=== PATIENT | male | born 1980 | race Caucasian/White ===

== ENCOUNTER 2022-09-19 13:46 | Outpatient (CLI) | payer BC, MEDICARE, SELFPAY ==
[2022-09-19 16:47] LABS: Chloride* 102 mmol/L (96-114); Sodium* 140 mmol/L (135-149)
[2022-09-19 16:48] LABS: Potassium* 4.4 mmol/L (3.6-5.1)
[2022-09-19 16:50] LABS: Estimated Glomerular Filt Rate 96 ml/min
[2022-09-19 16:51] LABS: Blood Urea Nitrogen* 18 mg/dL (5-24); Calcium* 9.8 mg/dL (8.4-10.6); Carbon Dioxide* 27 mmol/L (20-32); Glucose* 128 mg/dL (60-115)
== END 2022-09-19 13:47 | disposition home or self-care (01) ==
PROVIDERS: PCP Family Medicine; Visit Provider Family Medicine
DX: Z01.818 Encounter for other preprocedural examination (principal); N50.82 Scrotal pain
CPT/HCPCS: 80048

== ENCOUNTER 2022-10-26 12:11 | Outpatient (CLI) | payer BC, MEDICARE, SELFPAY ==
[2022-10-26 22:07] LABS: Chloride* 98 mmol/L (96-114); Potassium* 4.7 mmol/L (3.6-5.1); Sodium* 137 mmol/L (135-149)
[2022-10-26 22:10] LABS: Creatinine* 0.8 mg/dL (0.5-1.5); Estimated Glomerular Filt Rate 113 ml/min
[2022-10-26 22:11] LABS: Blood Urea Nitrogen* 18 mg/dL (5-24); Carbon Dioxide* 30 mmol/L (20-32); Glucose* 91 mg/dL (60-115)
[2022-10-26 22:21] LABS: INR 0.95 (0.91-1.10); Prothrombin Time 13.3 Seconds
== END 2022-10-26 12:12 | disposition home or self-care (01) ==
PROVIDERS: PCP Family Medicine; Visit Provider Family Medicine
DX: Z01.818 Encounter for other preprocedural examination (principal)
CPT/HCPCS: 80048; 85610

== ENCOUNTER 2023-10-03 16:42 | Outpatient (CLI) | payer BC, MEDICARE, SELFPAY ==
--- OUTSIDE RECORDS SUMMARY | 2023-10-03 11:17 | XMS_ITS | Continuity of Care Document ---
Author Name Unknown Organization [facility] Address [address] [place] [address] Phone Care Team Providers Care Telegraph Service Rater Name Role Phone Gary CRUM, PhD, Musa Unavailable Unavai lable Allergies, Adverse Reactions, Alerts Substance Reaction Status Criticality SCOPOLAMINE HYDROBROMIDE Skin rash Active No Information benzoin Skin rash Active No Information pseudoephedrine Active No Informati on loratadine Active No Information gabapentin Vomiting Active No Information latex Angioedema Active No Information HYDROCODONE BITARTRATE Nausea and vomiting Active No Information acetaminophen Active No Information Medications Medication Instructions Dosage Effective Dates (start - stop) Status Comments BUPRENORPHINE (unknown strength) Not Available - Active FLUTICASONE PROPIONATE (unknown strength) Not Available - Active IBUPROFEN (unknown strength) Not Available - Active PENTOXIFYLLINE (unknown strength) Not Available - Active NALOXONE HCL (unknown strength) Not Available - Active PROPRANOLOL HCL (unknown strength) Not Available - Active RIZATRIPTAN (unknown strength) Not Available - Active TIZANIDINE HCL (unknown strength) Not Available - Active NEXIUM (unknown strength) take 1 capsule by oral route every day at least 1 hour before a meal swallowing whole. Do not crush or chew granules. Not Available - Active ADELAIDA-D 12 HOUR (unknown strength) Not Available - Active SUMATRIPTAN (unknown strength) spray 1 spray by intranasal route once; if headache returns, dose may be repeated once after 2 hours, not to exceed 40 mg per day Not Available - Active NORTRIPTYLINE HCL (unknown strength) Not Available - Active ROXICET (unknown strength) Not Available - Active PROCHLORPERAZINE (unknown strength) Not Available - No Longer Active Procedures Procedure Date Office/Outpatient Visit,Coco Pinedo 2021 Office/Outpatient Visit,Coco Pinedo 2015 Advance Directives Directive Yes / No Effective Date File Name No Information Encounters Encounter Description Practice Location Reason(s) For Visit Diagnoses Date Provider Providers Copied on Encounter Office/Outpat ient Visit,Coco Pinedo [facility], [address], [facility] [place] [place], [id number], [place] tel:[phone] [facility] Cervicalgia 2 Gary Vigil. [facility], [address] [place] [address] [address], [place], [address], [place]. [phone] Referring Provider: Musa Vega, [facility] [address], [place], [address]. tel:[phone] Office/Outpat ient Visit,Coco Pinedo [facility], [address], [facility] [place], [id number], [place] tel:[phone] [facility] Low back painOther intervertebral disc displacement, thoracic region 6 Brandi Forde. [facility], [address] [place] [address], [address], [place], [place], [id number] , [place]. [phone] Referring Provider: Maurisio Donnelly, [facility] [address], [address], [place], [address] . tel:[phone] Family History Family Member Type Diagnosis Age At Onset No Information Payers Payer name Insurance type Covered libertarian ID Authoriza timelodie(s) [facility] [id number] Medicare MB [id number] [facility] [id number] [facility] [id number] Social History Type Description Quantity Date Captured Comments Alcohol Use Details Unknown Caffeine Use Details Unknown Tobacco Use Status Never smoked tobacco 2021 Smoking Status Never smoker Non-Smoking Tobacco Use Details : No Details Available : No Details Available Sex Male Vital Signs Date / Time: Height Weight BMI Pulse Rate Blood Pressure Temperature Respiratory Rate Body Surface Area Head Circumference Head Circ. Percentile Wt./John. Percentile BMI percentile Pulse Ox Inhaled Ox 8:57 AM 72.00 in 73.028 kg (161.00 lbs) 21.8 4 kg/m eter (2) Chief Complaint And Reason For Visit No Information Reason For Referral Reason For Referral No Information History Of Present Illness Encounter Date Complaint History Of Prese nt Illness No Information Functional Status Date Functional Assessmen t No Information Instructions Date Instruction Additional Infor mation No Information Assessments Type Assessment Date assessment Cervicalgia Patient Care Teams Name Effective Dates (start - stop) Status Members No Information
== END 2023-10-03 16:43 | disposition home or self-care (01) ==
PROVIDERS: PCP Family Medicine; Visit Provider Family Medicine
DX: Z00.00 Encounter for general adult medical examination without abnormal findings (principal); R73.03 Prediabetes; Z13.6 Encounter for screening for cardiovascular disorders
CPT/HCPCS: 80053; 80061

== ENCOUNTER 2024-10-05 13:27 | Outpatient (CLI) | payer BC, MEDICARE, SELFPAY | END 2024-10-05 13:28 | disposition home or self-care (01) | LOC: NFLDREF 10-06 02:09 | PROVIDERS: PCP Family Medicine; Referring Provider Family Medicine; Visit Provider Physician Assistant Medical | DX: R11.2 Nausea with vomiting, unspecified (principal); E63.1 Imbalance of constituents of food intake; R73.03 Prediabetes; R74.01 Elevation of levels of liver transaminase levels; Z13.21 Encounter for screening for nutritional disorder | CPT/HCPCS: 82306; 82607; 82728; 84450; 84460 ==